=== PATIENT | female | born 2000 | race Caucasian/White ===

== ENCOUNTER 2019-03-30 20:44 | Inpatient (IN) | payer OTHER ==
[2019-03-30 22:00] LABS: BASO % 0.2 % (0-2.0); EOS % 0.3 % (0-4.5); HEMATOCRIT 31.1 % (32.4-45.2); HEMOGLOBIN 10.7 GM/dL (10.7-15.3); LYMPH % 16.4 % (8-40); MCH 32.5 pg (25.7-33.7); MCHC 34.3 g/dl (32.0-36.0); MEAN CELL VOLUME 94.7 fl (80-96); MEAN PLT VOLUME 8.2 fl (7.5-11.1); MONO % 7.9 % (3.8-10.2); NEUT % 75.2 % (42.8-82.8); PLATELET COUNT 225 K/MM3 (134-434); RBC 3.29 M/mm3 (3.60-5.2); RDW 15.8 % (11.6-15.6); WHITE BLOOD COUNT 12.3 K/mm3 (4.0-10.0)
[2019-03-30] MEDS ORDERED: AMPICILLIN SODIUM 2 GM VIAL ONE (22:03)
[2019-03-30 22:06] VITALS: BMI 24.7
[2019-03-30 22:13] LABS: INR 0.92 (0.83-1.09); PROTHROMBIN TIME (PATIENT) 10.8 SEC (9.7-13.0)
[2019-03-30] MEDS ORDERED: DEXTROSE 5%-LACTATED RINGERS 1,000 ML IV ONE (22:15)
[2019-03-30] MEDS ORDERED: AMPICILLIN - 2 GM in DEXTROSE 5%-WATER 100 ML IVPB STA (22:15)
[2019-03-30 22:16] LABS: ACTIVATED PTT 26.8 SECONDS (25.2-36.5)
[2019-03-30 22:23] LABS: BLOOD UREA NITROGEN 6.5 mg/dL (7-18); CALCIUM 8.9 mg/dL (8.5-10.1); CREATININE 0.4 mg/dL (0.55-1.3)
[2019-03-31] MEDS ORDERED: CITRIC ACID/SODIUM CITRATE 30 ML UNIT-DOSE CUP PO ONE (00:19)
--- NOTE | 2019-03-31 00:26 | HP ---
Past Medical History - Primary Care Physician PCP:: Gaudencio Morales - Admission Chief Complaint: 39 weeks, labor, FHR cat 2 , History of Present Illness: 18 yo f g 5 [id number] EDC 04/07/19 , 30 weeks in labor cx 4 cm 80 vx -2 mr fhr cat 2 with tachy cardia and variable decelration admitted for c/s, risks discussed History Source: Patient Limitations to Obtaining History: No Limitations - Past Medical History ...: 5 ...Para: 1 ...Term: 1 ...: 0 ...Spon : 2 ...Induced : 1 ... Weeks Gestation by Dates: 38.6 ...EDC by Dates: 04/07/19 Heme/Onc: Yes: Anemia (po iron & pnv) Psych: Yes: Depression (documented in the chart). No: Addictions - Past Surgical History Past Surgical History: Yes: None Hx Myomectomy: No Hx Transabdominal Cerclage: No - Smoking History Smoking history: Never smoked Have you smoked in the past 12 months: No - Alcohol/Substance Use Hx Alcohol Use: No History of Substance Use: reports: None, Marijuana (last used 5 months ago) - Social History History of Recent Travel: No Home Medications - Allergies Allergies/Adverse Reactions: Allergies Allergy/AdvReac Type Severity Reaction Status Date / Time No Known Allergies Allergy Verified 03/30/19 21:26 - Home Medications Home Medications: Ambulatory Orders Ferrous Sulfate [Feosol] 325 mg PO DAILY 02/25/17 Vitamins (Sjr) - 1 tab PO DAILY tablet 02/26/17 Review of Systems - Review of Systems Constitutional: reports: No Symptoms Eyes: reports: No Symptoms HENT: reports: No Symptoms Neck: reports: No Symptoms Cardiovascular: reports: No Symptoms Respiratory: reports: No Symptoms Gastrointestinal: reports: No Symptoms, Vomiting Blood Genitourinary: reports: Frequency Breasts: reports: No Symptoms Reported Musculoskeletal: reports: No Symptoms Integumentary: reports: No Symptoms Neurological: reports: No Symptoms Endocrine: reports: No Symptoms Hematology/Lymphatic: reports: No Symptoms Psychiatric: reports: No Symptoms Physical Exam - Maternity Vital Signs: Vital Signs Temperature 98.2 F 03/30/19 23:00 Pulse Rate 79 03/30/19 23:00 Respiratory Rate 20 03/30/19 23:00 Blood Pressure 103/58 L 03/30/19 23:00 O2 Sat by Pulse Oximetry (%) Constitutional: Yes: Well Nourished, No Distress, Calm Eyes: Yes: WNL, Conjunctiva Clear, EOM Intact HENT: Yes: WNL, Atraumatic, Normocephalic Neck: Yes: WNL, Supple, Trachea Midline Cardiovascular: Yes: WNL, Regular Rate and Rhythm Breast(s): Yes: WNL - Abdominal Exam/OB Fundal Height: 38 Number of Fetuses: Single Presentation: Vertex Contractions: Yes Regularity: Irregular Intensity: Mod/Strong Monitor Mode: External Heart Rate Location: [facility] Category: II Decelerations: Variable - Vaginal Exam/OB Vaginal Bleediing: No Speculum Exam: No Dilatation (cm): 4 cm Effacement (%): 80 Amniotic Membrane Status: Ruptured Nitrazine Test: Positive Amniotic Fluid: Yes: Clear Presentation: Vertex/Position Station: -2 - Physical Exam Musculoskeletal: Yes: WNL Extremities: Yes: WNL Edema: LLE: Trace, RLE: Trace Deep Tendon Reflex Grade: Normal +2 ...Motor Strength: WNL Psychiatric: Yes: WNL - Labs Lab Results: CBC, BMP 03/30/19 21:35 03/30/19 21:35 Hemorrhage Risk Assessment - Risk Factors Medium Risk Factors: Yes: None High Risk Factors: Yes: None Risk Score: 1 Risk Level: Medium Risk Problem List - Problems (1) with 39 completed weeks gestation Code(s): Z3A.39 - 39 WEEKS GESTATION OF (2) Labor established Code(s): [id number] - (3) Non-reassuring electronic monitoring tracing Code(s): O76 - ABNLT IN HEART RATE AND RHYTHM COMP LABOR AND DELIVERY Assessment/Plan plan admit tachy rate 160/170 with variable decel advised c/s, risks discussed, ulternatives explained
[2019-03-31 00:29] LABS: COCAINE, UR NEGATIVE ng/ml (CUTOFF=300); METHADONE, UR NEGATIVE ng/ml (CUTOFF=300); OPIATES, URI NEGATIVE ng/ml (CUTOFF=300); PHENCYCLIDINE,URINE NEGATIVE ng/ml (CUTOFF=25); URINE AMPHETAMINES NEGATIVE ng/ml (CUTOFF=500); URINE BARBITURATES NEGATIVE ng/ml (CUTOFF=200); URINE BENZODIAZEPINES NEGATIVE ng/ml (CUTOFF=200)
[2019-03-31] MEDS ORDERED: ELECTROLYTE-148 SOLN 1,000 ML IV SCH (00:30)
[2019-03-31] MEDS ORDERED: OXYTOCIN 20 UNITS in 0.9% NS 20 UNIT/1,000 ML INFUS.BAG IV ONE ×2 (00:37→01:56)
[2019-03-31] MEDS ORDERED: morphine SULFATE/PF 0.5 MG/ML (2cc Syringe - QUVA) ONE (00:39)
[2019-03-31] MEDS ORDERED: BENZOCAINE 20% 57 GM BOTTLE TP PRN (00:45)
[2019-03-31] MEDS ORDERED: oxyCODONE HCL 5 MG TABLET PO PRN (00:45)
[2019-03-31] MEDS ORDERED: METHYLERGONOVINE MALEATE 0.2 MG/1 ML AMP IM PRN (00:45)
[2019-03-31] MEDS ORDERED: WITCH HAZEL 50% (TUCKS) 40 PAD/JAR PAD TP PRN (00:45)
[2019-03-31] MEDS ORDERED: OXYTOCIN 20 UNITS in 0.9% NS 20 UNIT/1,000 ML INFUS.BAG IV SCH (00:45)
[2019-03-31] MEDS ORDERED: BENZOCAINE 28 GM HEMORRHOIDAL OINTMENT PR PRN (00:45)
[2019-03-31] MEDS ORDERED: diphenhydrAMINE HCL 25 MG CAPSULE (FP) PO PRN (00:45)
[2019-03-31] MEDS ORDERED: ceFAZolin SODIUM 1 GM VIAL ONE (00:53)
[2019-03-31] MEDS ORDERED: MIDAZOLAM HCL 2 MG/2 ML SINGLE DOSE VIAL ONE (01:10)
[2019-03-31] MEDS ORDERED: PROPOFOL 20 ML ONE (01:28)
--- NOTE | 2019-03-31 01:48 | OP ---
Operative Note - Note: Operative Date: 03/31/19 Pre-Operative Diagnosis: 39 weeks, labor , non reassuring FHR Operation: primary lst c/s Findings: live babu boy 05/07 Surgeon: Gaudencio Morales Room Service Supervisor: Vargas Howard Anesthesiologist/LEAD PROJECT ENGINEER: Lisa Romero Anesthesia: Spinal Specimens Removed: placenta Estimated Blood Loss (mls): 500 Drains & Tubes with Location: [facility] Operative Report Dictated: Yes
[2019-03-31] MEDS ORDERED: ACETAMINOPHEN INJECTION 100 ML IVPB ONE (01:57)
[2019-03-31] MEDS: ACETAMINOPHEN 1000 MG/100 ML VIAL (NON FORMULARY) IVPB PRN ×2 (02:00→09:54)
[2019-03-31] MEDS ORDERED: AMPICILLIN - 1 GM in DEXTROSE 5%-WATER - 50 ML IVPB SCH (02:00)
[2019-03-31] MEDS ORDERED: ONDANSETRON 4 MG/2 ML VIAL IVPUSH PRN (02:01)
[2019-03-31] MEDS: DEXTROSE 5%-LACTATED RINGERS 1,000 ML IV SCH ×2 (02:59→12:34)
[2019-03-31] MEDS: CEFAZOLIN 1 GM/D5W 1 GM/50 ML BAG IVPB SCH ×2 (04:20→09:53)
[2019-03-31] MEDS: IBUPROFEN 800 MG/8 ML IJ IVPB PRN ×2 (04:26→14:35)
--- NOTE | 2019-03-31 06:58 | PN ---
Progress Note (short form) - Note Progress Note: On 03.31.19. I assisted Dr. Morales in primary c/section for the entiretry of the brian.
--- NOTE | 2019-03-31 09:40 | OP ---
Operative Note - Note: Operative Date: 03/31/19 Pre-Operative Diagnosis: 39 weeks, labor, FHR cat 2 Operation: primary LST c/s Findings: live baby boy, 05/07. OP position Surgeon: Gaudencio Morales Ed Special Education Teacher: Vargas Howard Anesthesiologist/INSPECTOR AIDE: Lisa Romero Anesthesia: Spinal Estimated Blood Loss (mls): 500 Drains & Tubes with Location: [facility] Operative Report Dictated: Yes
[2019-03-31] MEDS: ENOXAPARIN NA (PORCINE) 40 MG/0.4 ML DISP.SYRIN SQ SCH (10:06)
[2019-03-31] MEDS: SIMETHICONE 80 MG TAB.CHEW (FP) PO PRN ×2 (14:36→20:57)
[2019-03-31] MEDS ORDERED: CEFAZOLIN 1 GM/D5W 1 GM/50 ML BAG IVPB SCH (18:00)
[2019-03-31] MEDS: oxyCODONE HCL 5 MG TABLET PO PRN (20:57)
[2019-03-31] MEDS: ACETAMINOPHEN 325 MG TABLET (FP) PO PRN (20:58)
[2019-04-01] MEDS ORDERED: BISACODYL 10 MG SUPP.RECT PR PRN (00:45)
[2019-04-01] MEDS: oxyCODONE HCL 5 MG TABLET PO PRN ×6 (01:20→23:12)
[2019-04-01] MEDS: SIMETHICONE 80 MG TAB.CHEW (FP) PO PRN ×6 (01:20→23:12)
[2019-04-01] MEDS: ACETAMINOPHEN 325 MG TABLET (FP) PO PRN (01:21)
[2019-04-01] MEDS: IBUPROFEN 600 MG TABLET (FP) PO PRN ×5 (05:12→23:12)
[2019-04-01 07:50] LABS: BASO % 0.3 % (0-2.0); EOS % 0.3 % (0-4.5); HEMATOCRIT 31.6 % (32.4-45.2); HEMOGLOBIN 10.6 GM/dL (10.7-15.3); LYMPH % 10.1 % (8-40); MCH 32.3 pg (25.7-33.7); MCHC 33.6 g/dl (32.0-36.0); MEAN CELL VOLUME 96.2 fl (80-96); MEAN PLT VOLUME 8.4 fl (7.5-11.1); MONO % 4.7 % (3.8-10.2); NEUT % 84.6 % (42.8-82.8); PLATELET COUNT 207 K/MM3 (134-434); RBC 3.29 M/mm3 (3.60-5.2); RDW 15.8 % (11.6-15.6); WHITE BLOOD COUNT 14.7 K/mm3 (4.0-10.0)
[2019-04-01] MEDS ORDERED: DIPHTH,PERTUSS(ACELL),TET 0.5 ML DISP.SYRIN IM ONE (10:00)
[2019-04-01] MEDS: ENOXAPARIN NA (PORCINE) 40 MG/0.4 ML DISP.SYRIN SQ SCH (10:00)
--- NOTE | 2019-04-01 10:05 | PN ---
Progress Note (short form) - Note Progress Note: pod 1 doing well, ambulating, has mild incisional pain CBC, BMP 04/01/19 06:30 03/30/19 21:35 Last Vital Signs Temp Pulse Resp BP Pulse Ox 98.8 F 74 17 108/54 L 100 04/01/19 02:00 04/01/19 02:00 04/01/19 02:00 04/01/19 02:00 03/31/19 03:30 abdomen soft, no distension , no cva lochia mild no calf tenderness plan ambulate , advance diet pain management Problem List - Problems (1) with 39 completed weeks gestation Code(s): Z3A.39 - 39 WEEKS GESTATION OF (2) Labor established Code(s): DNT8853 - (3) Non-reassuring electronic monitoring tracing Code(s): O76 - ABNLT IN HEART RATE AND RHYTHM COMP LABOR AND DELIVERY
--- NOTE | 2019-04-01 17:54 | OP ---
DATE OF OPERATION: 03/31/2019 PREOPERATIVE DIAGNOSES: , 39 weeks; labor; non-reassuring heart rate. POSTOPERATIVE DIAGNOSES: , 39 weeks; labor; non-reassuring heart rate. PROCEDURE: Primary low-segment transverse section. SURGEON: Diana Morales MD BUILDINGS AND GROUNDS DIRECTOR: Vargas Howard MD ANESTHESIA: Spinal anesthesia, Dr. Lisa Romero DO ESTIMATED BLOOD LOSS: 500 mL. DESCRIPTION: Patient was taken to operating room on adequate spinal anesthesia. Abdomen and perineum was prepped and draped. Pfannenstiel abdominal skin incision was made. Abdominal wall was cut layer by layer until peritoneum was exposed and incised. Upon entering abdominal cavity, lower uterine segment was identified and uterovesical fold of peritoneum established, bladder was pushed down. Then with the lower blade of the Appleton retractor in pelvis, a low transverse uterine incision was made, incision extended laterally. Amniotic sac was entered, clear fluid. Head delivered from occiput posterior position, nasopharynx was suctioned. A live baby was delivered without any difficulty. Placenta was delivered manually. Uterine cavity was cleaned of all remaining tissue. Uterine incision was closed in 2 layers, 1st layer with 0 Biosyn continuous suture, the 2nd layer with 0 Biosyn imbricating the 1st layer. Bladder flap was closed with 0 Biosyn continuous suture. Both tubes and ovaries were checked, were normal, no active bleeding was seen. All the lap pad, sponge count, and instrument count were correct. Then peritoneum was closed with 0 Biosyn continuous suture. Muscles were brought together with interrupted suture of 0 Biosyn. Fascia was closed with 0 Biosyn continuous suture, subcutaneous fat with interrupted suture of 0 Biosyn, and the skin was closed with gabi. Patient tolerated procedure well, left the OR in good condition. DIANA MORALES M.D. [id number]
[2019-04-02] MEDS: IBUPROFEN 600 MG TABLET (FP) PO PRN ×4 (05:48→20:13)
[2019-04-02] MEDS: SIMETHICONE 80 MG TAB.CHEW (FP) PO PRN ×4 (05:48→20:13)
[2019-04-02] MEDS: oxyCODONE HCL 5 MG TABLET PO PRN ×4 (05:48→20:13)
--- NOTE | 2019-04-02 07:25 | PN ---
Progress Note (short form) - Note Progress Note: pod 2 doing well, ambulating, tolerating diet CBC, BMP 04/01/19 06:30 03/30/19 21:35 Last Vital Signs Temp Pulse Resp BP Pulse Ox 97.4 F L 76 18 95/53 L 100 04/01/19 22:00 04/01/19 22:00 04/01/19 22:00 04/01/19 22:00 03/31/19 03:30 abdomen soft, no distension, no cva incision dry, clean no calf tenderness no active vaginal bleeding plan ambulate, cbc pain management Problem List - Problems (1) with 39 completed weeks gestation Code(s): Z3A.39 - 39 WEEKS GESTATION OF (2) Labor established Code(s): [id number] - (3) Non-reassuring electronic monitoring tracing Code(s): O76 - ABNLT IN HEART RATE AND RHYTHM COMP LABOR AND DELIVERY
[2019-04-02] MEDS: ENOXAPARIN NA (PORCINE) 40 MG/0.4 ML DISP.SYRIN SQ SCH (09:26)
--- NOTE | 2019-04-02 19:30 | CON.PSY ---
Psychiatry Consult Chief Complaint: 18 jesus old female seen for Psych eval. Had her second baby thru cSection. Had history of depression several yeras ago and been on REmeron. She stopped taking meds and has not seen a paych in awwale. CDEnies any depression at this time. - Previous Psychiatric Treatment Outpatient: More than 6 mos ago Inpatient: None - Previous Substance Abuse Treatment Outpatient: None Inpatient: None - Reason for Previous Treatment Reason for Previous Treatment: Major Depression - Current Medications Current Medications: Active Medications Acetaminophen (Tylenol -) 650 mg PO Q4H PRN PRN Reason: PAIN LEVEL 1-5 Last Admin: 04/01/19 01:21 Dose: 650 mg Acetaminophen (Ofirmev Injection -) 1,000 mg IVPB Q6H PRN PRN Reason: PAIN OR FEVER Last Admin: 03/31/19 09:54 Dose: 1,000 mg Benzocaine (Americaine 20% [place] -) 1 spray TP PRN PRN PRN Reason: Pain - Topical Benzocaine (Americaine Ointment -) 1 applic WV PRN PRN PRN Reason: Pain - Topical Bisacodyl (Dulcolax Suppository -) 10 mg WV PRN PRN PRN Reason: CONSTIPATION Diphenhydramine HCl (Benadryl -) 25 mg PO Q8H PRN PRN Reason: FOR ITCHING Diphenhydramine HCl (Benadryl Injection -) 25 mg IVPUSH Q4H PRN PRN Reason: Pruritis Last Admin: 03/31/19 03:45 Dose: 25 mg Enoxaparin Sodium (Lovenox -) 40 mg SQ DAILY DEVIN Last Admin: 04/02/19 09:26 Dose: 40 mg Ibuprofen (Motrin -) 600 mg PO Q4H PRN PRN Reason: PAIN LEVEL 1 - 3 Last Admin: 04/02/19 15:19 Dose: 600 mg Ibuprofen (Caldolor Injection -) 800 mg IVPB Q6H PRN PRN Reason: PAIN > 5 if PO not effective. Last Admin: 03/31/19 14:35 Dose: 800 mg Methylergonovine Maleate (Methergine Injection -) 0.2 mg IM Q4H PRN PRN Reason: EXCESSIVE BLEEDING Ondansetron HCl (Zofran Injection) 4 mg IVPUSH Q4H PRN PRN Reason: NAUSEA Oxycodone HCl (Roxicodone -) 5 mg PO Q4H PRN PRN Reason: PAIN LEVEL 4 - 6 Last Admin: 04/02/19 15:19 Dose: 5 mg Oxycodone HCl (Roxicodone -) 10 mg PO Q4H PRN PRN Reason: PAIN LEVEL 7 - 10 Senna/Docusate Sodium (Pericolace -) 2 tablet PO HS PRN PRN Reason: CONSTIPATION Simethicone (Mylicon -) 80 mg PO Q4H PRN PRN Reason: GAS Last Admin: 04/02/19 15:20 Dose: 80 mg Witch Yajaira/Glycerin (Tucks Pads -) 1 pad TP PRN PRN PRN Reason: Pain - Topical - Allergies Allergies: Allergies Allergy/AdvReac Type Severity Reaction Status Date / Time No Known Allergies Allergy Verified 03/30/19 21:26 - Current Living Status Usual Living Arrangement: With Parent - Current Mental Status Evaluation Appearance: Well Groomed Attitude: Cooperative - Affect Affect: Full Range Appropriateness: Appropriate to Content - Mood Mood: Euthymic - Speech/Language Expressive: Coherent - Psychomotor Activity Psychomotor Activity: Normal - Thought Process Thought Process: Intact - Thought Content Hallucinations: Absent Delusions: Absent - Self Perception Self Perception: No Impairment - Cognition Attention: Alert Orientation: Time Memory, Immediate Recall: Intact Memory, Short Term: 3/3 Memory, Remote with Promptin/3 - Concentration Serial Sevens Intact: Yes Simple Calculations Intact: Yes - Abstraction Proverb Interpretation: Intact Judgement: Intact - Insight Insight: Intact - Impulse Control Impulse Control: Good Control - Suicidal Ideation Suicidal Ideation: No - Homicidal Ideation Homicidal Ideation: No Assessment/Plan 1) Patient is Psych stable. 2) no need for Psych meds or follow up. 3) discharge when MEdically stable.
[2019-04-02] MEDS ORDERED: SENNOSIDES/DOCUSATE COMBO (SENNA PLUS) TABLET (UD) PO PRN (22:00)
[2019-04-03] MEDS: SIMETHICONE 80 MG TAB.CHEW (FP) PO PRN ×4 (01:35→18:06)
[2019-04-03] MEDS: IBUPROFEN 600 MG TABLET (FP) PO PRN ×4 (01:35→18:06)
[2019-04-03] MEDS: ACETAMINOPHEN 325 MG TABLET (FP) PO PRN ×4 (01:35→18:05)
--- NOTE | 2019-04-03 08:06 | PN ---
Post Progress Note - Subjective Subjective: Doing well. Pain controlled. No fevers/chills. Type of Delivery: Primary C/S Vital Signs: Vital Signs Temperature 97.8 F 04/02/19 20:15 Pulse Rate 92 H 04/02/19 20:15 Respiratory Rate 20 04/02/19 20:15 Blood Pressure 100/64 04/02/19 20:15 O2 Sat by Pulse Oximetry (%) 100 03/31/19 03:30 Breast Exam: No: Soft, Engorged, Cracked Nipples, Other Uterus: Yes: Fundus Firm Incision: Yes: Dressing dry and intact Abdomen/GI: Yes: Abdomen soft, Tolerating PO Lochia: Yes: Rubra Lochia, amount: Small Extremities: Yes: Calves non-tender Activity: Ambulating - Labs Labs: CBC WBC 14.7 K/mm3 (4.0-10.0) H 04/01/19 06:30 RBC 3.29 M/mm3 (3.60-5.2) L 04/01/19 06:30 Hgb 10.6 GM/dL (10.7-15.3) L 04/01/19 06:30 Hct 31.6 % (32.4-45.2) L 04/01/19 06:30 MCV 96.2 fl (80-96) H 04/01/19 06:30 MCH 32.3 pg (25.7-33.7) 04/01/19 06:30 MCHC 33.6 g/dl (32.0-36.0) 04/01/19 06:30 RDW 15.8 % (11.6-15.6) H 04/01/19 06:30 Plt Count 207 K/MM3 (134-434) 04/01/19 06:30 MPV 8.4 fl (7.5-11.1) 04/01/19 06:30 Absolute Neuts (auto) 12.4 K/mm3 (1.5-8.0) H 04/01/19 06:30 Neutrophils % 84.6 % (42.8-82.8) H 04/01/19 06:30 Lymphocytes % 10.1 % (8-40) D 04/01/19 06:30 Monocytes % 4.7 % (3.8-10.2) 04/01/19 06:30 Eosinophils % 0.3 % (0-4.5) 04/01/19 06:30 Basophils % 0.3 % (0-2.0) 04/01/19 06:30 Nucleated RBC % 0 % (0-0) 04/01/19 06:30 Assessment/Plan 18yo s/p RLTCS, POD#3 Routine PP care Labs reviewed, stable s/p psych consult, no new meds D/C to home by POD#4 Macho Cardoza MD
[2019-04-03 09:01] LABS: BASO % 0.2 % (0-2.0); EOS % 0.8 % (0-4.5); PLATELET COUNT 231 K/MM3 (134-434)
[2019-04-03 09:15] LABS: HEMOGLOBIN 10.3 GM/dL (10.7-15.3); LYMPH % 14.6 % (8-40); MCH 32.5 pg (25.7-33.7); MCHC 34.4 g/dl (32.0-36.0); MEAN CELL VOLUME 94.6 fl (80-96); MONO % 7.3 % (3.8-10.2); NEUT % 77.1 % (42.8-82.8); RBC 3.17 M/mm3 (3.60-5.2); RDW 15.6 % (11.6-15.6); WHITE BLOOD COUNT 8.7 K/mm3 (4.0-10.0)
[2019-04-03] MEDS: ENOXAPARIN NA (PORCINE) 40 MG/0.4 ML DISP.SYRIN SQ SCH (10:24)
[2019-04-03 15:31] VITALS: BP 110/57; PULSE 79; TEMP 98.4
--- NOTE | 2019-04-06 15:24 | PATH ---
Surgical Pathology Report Patient Name: SANDRA LEIGH Med. Rec. #: [id number] /Age/Gender: 2000 (Age: 18) / F Account: [id number] Location: [facility] OBS/BAGMAN/WOMAN Taken: 03/31/2019 Received: 04/02/2019 Reported: 04/06/2019 Physicians: Gaudencio Morales M.D. Specimen(s) Received PLACENTA Clinical History , history of depression, genital warts, x1 02/12, VTOP x1, SPAB X2 Nonreassuring heart rate Final Diagnosis PLACENTA, SECTION: 390 G THIRD TRIMESTER PLACENTA WITH TRIVASCULAR UMBILICAL CORD, MILD TO MODERATE ACUTE CHORIOAMNIONITIS, AND FOCAL MILD ACUTE VASCULITIS. Electronically Signed Rosita Hilliard M.D. Gross Description The specimen is received fresh labeled placenta and is a 390 gram, 13.0 x 14.5 x 3.0 cm. placenta with attached membranes and umbilical cord. The attached membranes are cheatham, translucent with focal opacities and insert marginally. The umbilical cord measures 9 cm. in length and averages 1.0 cm. in diameter. The cord inserts eccentrically, 4 cm. to the nearest margin. No true knots or strictures are identified. Cut surface of the umbilical cord reveals 3 vessels. The surface is hensley-blue with minimal fibrin deposition and appropriate caliber vessels. The maternal surface is red-brown and intact. Sectioning reveals red-brown, spongy parenchyma with mild calcifications. No lesions are identified. Quality Assurance Engineer sections are submitted in three cassettes as follows: 1- membrane rolls and umbilical cord; 2-3- full thickness sections of placenta. /04/04/201904/04/2019
== END 2019-04-03 19:50 | disposition home or self-care (01) | DRG 540 ==
LOC: JDEL 20:44 → JLDR 21:15 → OBSVTOIN 03-31 00:17 → J3W 03-31 04:00
PROVIDERS: ADMIT Obstetrics & Gynecology; ATTEND Obstetrics & Gynecology
PROC: 10D00Z1 Extraction of Products of Conception, Low, Open Approach (ICD-10-PCS; principal; 2019-03-31)
PROC: 3E0334Z Introduction of Serum, Toxoid and Vaccine into Peripheral Vein, Percutaneous Approach (ICD-10-PCS; 2019-03-31)
DX: O76 Abnormality in fetal heart rate and rhythm complicating labor and delivery (principal); Z3A.39 39 weeks gestation of pregnancy; Z29.13 Encounter for prophylactic Rho(D) immune globulin; Z37.0 Single live birth
CPT/HCPCS: 36415; 36600; 80048; 80307; 82803; 85025; 85461; 85610; 85730; 86593; 86762; 86850; 86870; 86900; 86901; 86902; 86999; 87340; 87389; 88307-TC; 90715; G0378; J0131